=== PATIENT | male | born 1995 | race Two or more races ===

== ENCOUNTER 2019-04-01 02:54 | Emergency (ER) | payer MEDICAID ==
[~2019-04-01] VITALS: Ht 165.1 cm; Wt 90.7 kg
[2019-04-01 02:55] VITALS: BP 156/98
--- NOTE | 2019-04-01 02:55 | NUR ---
ER Nurse Note: Pt brought in by ambulance c/o forehead lac that occured 0240. Per pt, pt was drinking a 12pack of beer. Pt had an argument with family and ran to kitchen, contemplated SI but accidently tripped and fell. Pt has a lac on forehead from LT to RT forhead with metal can. Pt has hx of SI and was in [facility] in the past d/t personal events. Pt denies SI currently, a&ox4, VSS, stable. [employer] at pt side; No sitter currently but primary nurse in close proximity to pt. Will continue to monitor.
--- NOTE | 2019-04-01 03:10 | NUR ---
Nursing chemical processing supervisor notified of the need for a sitter.
--- NOTE | 2019-04-01 03:23 | Emergency Room Report ---
History of Present Illness General Chief Complaint: Laceration Source: Patient (Teo Perea MD) Present Illness HPI 23-year-old male history of suicidal attempt in the past presents with suicidal ideations, patient drank a 12 pack, he states he was going to cut himself, he is suicidal intent is aggravated by fight with his family alleviated by unknown , severity was severe, lasting the entire day, symptoms started 1 day ago, no nausea no vomiting no chest pain or shortness of breath patient has no systemic complaints at this time his plan was to cut himself with aluminum, he fell forward earlier today, landing on the piece of aluminum that cut his forehead, he had positive LOC he was placed on a 5150 for suicidal intent (Teo Perea MD) Allergies: Coded Allergies: No Known Allergies (Unverified , 04/01/19) Patient History Past Medical History: see triage record Social History: Reports: smoking, alcohol use, drug use Reviewed Nursing Documentation: PMH: Agreed; PSxH: Agreed (Teo Perea MD) Nursing Documentation-PMH Past Medical History: No History, Except For (Teo Perea MD) Review of Systems All Other Systems: negative except mentioned in HPI (Teo Perea MD) Physical Exam Vital Signs Date Time Temp Pulse Resp B/P (MAP) Pulse Ox O2 Delivery O2 Flow Rate FiO2 04/01/19 02:52 98.4 128 17 156/98 (117) 98 Room Air Sp02 EP Interpretation: reviewed, normal General Appearance: well appearing, no apparent distress, alert Head: normocephalic, other - Abrasion forehead no open laceration Eyes: bilateral eye PERRL, bilateral eye EOMI ENT: uvula midline, moist mucus membranes Neck: supple, thyroid normal, supple/symm/no masses Respiratory: lungs clear, no respiratory distress, no retraction, no accessory muscle use Cardiovascular #1: normal peripheral pulses, no edema, no gallop, no murmur, tachycardia Gastrointestinal: non tender, soft, no guarding, no rebound Musculoskeletal: normal inspection Neurologic: alert, oriented x3 Psychiatric: mood/affect normal Skin: no rash, warm/dry (Teo Perea MD) Medical Decision Making Diagnostic Impression: Primary Impression: Closed head injury Qualified Codes: S09.90XA - Unspecified injury of head, initial encounter Additional Impression: Suicidal ideations ER Course 23-year-old male presents with acute suicidal ideations. Patient is on a 5150, patient is medically cleared for transfer to a psychiatric facility. Patient with a plan, wants to cut himself with aluminum Laboratory Tests Test 04/01/19 03:23 White Blood Count 9.1 K/UL (4.8-10.8) Red Blood Count 5.05 M/UL (4.70-6.10) Hemoglobin 15.7 G/DL (14.2-18.0) Hematocrit 44.7 % (42.0-52.0) Mean Corpuscular Volume 88 FL (80-99) Mean Corpuscular Hemoglobin 31.2 PG (27.0-31.0) H Mean Corpuscular Hemoglobin Concent 35.2 G/DL (32.0-36.0) Red Cell Distribution Width 10.4 % (11.6-14.8) L Platelet Count 308 K/UL (150-450) Mean Platelet Volume 6.4 FL (6.5-10.1) L Neutrophils (%) (Auto) 63.2 % (45.0-75.0) Lymphocytes (%) (Auto) 19.5 % (20.0-45.0) L Monocytes (%) (Auto) 7.4 % (1.0-10.0) Eosinophils (%) (Auto) 9.0 % (0.0-3.0) H Basophils (%) (Auto) 1.0 % (0.0-2.0) Sodium Level 140 MMOL/L (136-145) Potassium Level 3.0 MMOL/L (3.5-5.1) L Chloride Level 102 MMOL/L (98-107) Carbon Dioxide Level 22 MMOL/L (21-32) Anion Gap 16 mmol/L (5-15) H Blood Urea Nitrogen 8 mg/dL (7-18) Creatinine 0.8 MG/DL (0.55-1.30) Estimate Glomerular Filtration Rate > 60 mL/min (>60) Glucose Level 123 MG/DL (74-106) H Calcium Level 9.3 MG/DL (8.5-10.1) Total Bilirubin 0.3 MG/DL (0.2-1.0) Aspartate Amino Transferase (AST) 100 U/L (15-37) H Alanine Aminotransferase (ALT) 137 U/L (12-78) H Alkaline Phosphatase 112 U/L (46-116) Total Protein 9.3 G/DL (6.4-8.2) H Albumin 4.5 G/DL (3.4-5.0) Globulin 4.8 g/dL Albumin/Globulin Ratio 0.9 (1.0-2.7) L Salicylates Level 1.8 ug/mL (2.8-20) L Urine Opiates Screen Negative (NEGATIVE) Acetaminophen Level < 2 MCG/ML (10-30) L Urine Barbiturates Screen Negative (NEGATIVE) Phencyclidine (PCP) Screen Negative (NEGATIVE) Urine Amphetamines Screen Negative (NEGATIVE) Urine Benzodiazepines Screen Negative (NEGATIVE) Urine Cocaine Screen Negative (NEGATIVE) Urine Marijuana (THC) Screen Positive (NEGATIVE) H Serum Alcohol 167 mg/dL (Teo Perea MD) ER Course Patient was evaluated by myself this morning. Patient still feeling a little depressed. States that he was mostly drunk. But now he is not drunk anymore. He is medically cleared. However patient is on a 5150. Labs Test 04/01/19 03:23 04/01/19 06:00 White Blood Count 9.1 K/UL (4.8-10.8) Red Blood Count 5.05 M/UL (4.70-6.10) Hemoglobin 15.7 G/DL (14.2-18.0) Hematocrit 44.7 % (42.0-52.0) Mean Corpuscular Volume 88 FL (80-99) Mean Corpuscular Hemoglobin 31.2 PG (27.0-31.0) Mean Corpuscular Hemoglobin Concent 35.2 G/DL (32.0-36.0) Red Cell Distribution Width 10.4 % (11.6-14.8) Platelet Count 308 K/UL (150-450) Mean Platelet Volume 6.4 FL (6.5-10.1) Neutrophils (%) (Auto) 63.2 % (45.0-75.0) Lymphocytes (%) (Auto) 19.5 % (20.0-45.0) Monocytes (%) (Auto) 7.4 % (1.0-10.0) Eosinophils (%) (Auto) 9.0 % (0.0-3.0) Basophils (%) (Auto) 1.0 % (0.0-2.0) Sodium Level 140 MMOL/L (136-145) Potassium Level 3.0 MMOL/L (3.5-5.1) Chloride Level 102 MMOL/L (98-107) Carbon Dioxide Level 22 MMOL/L (21-32) Anion Gap 16 mmol/L (5-15) Blood Urea Nitrogen 8 mg/dL (7-18) Creatinine 0.8 MG/DL (0.55-1.30) Estimat Glomerular Filtration Rate > 60 mL/min (>60) Glucose Level 123 MG/DL (74-106) Calcium Level 9.3 MG/DL (8.5-10.1) Total Bilirubin 0.3 MG/DL (0.2-1.0) Aspartate Amino Transf (AST/SGOT) 100 U/L (15-37) Alanine Aminotransferase (ALT/SGPT) 137 U/L (12-78) Alkaline Phosphatase 112 U/L (46-116) Total Protein 9.3 G/DL (6.4-8.2) Albumin 4.5 G/DL (3.4-5.0) Globulin 4.8 g/dL Albumin/Globulin Ratio 0.9 (1.0-2.7) Salicylates Level 1.8 ug/mL (2.8-20) Urine Opiates Screen Negative (NEGATIVE) Acetaminophen Level < 2 MCG/ML (10-30) Urine Barbiturates Screen Negative (NEGATIVE) Phencyclidine (PCP) Screen Negative (NEGATIVE) Urine Amphetamines Screen Negative (NEGATIVE) Urine Benzodiazepines Screen Negative (NEGATIVE) Urine Cocaine Screen Negative (NEGATIVE) Urine Marijuana (THC) Screen Positive (NEGATIVE) Serum Alcohol 167 mg/dL 96 mg/dL (Tiago Mcintosh MD) CT/MRI/US Diagnostic Results CT/MRI/US Diagnostic Results : Impression Preliminary Findings Only See Final Report For Complete Findings CT HEAD Without Contrast: No ICH, mass effect or edema. No skull fracture. Radiologist: Nicolas Holliday M.D. Study ready at 04:39 and initial results transmitted at 05:03 (Teo Perea MD) Last Vital Signs Date Time Temp Pulse Resp B/P (MAP) Pulse Ox O2 Delivery O2 Flow Rate FiO2 04/01/19 02:52 98.4 128 17 156/98 (117) 98 Room Air (Teo Perea MD) Disposition: XFER SHT-TRM HOSP Condition: Stable Teo Perea MD Apr 01, 2019 03:23 Tiago Mcintosh MD Apr 01, 2019 08:59
[2019-04-01] MEDS ORDERED: D5NS 1,000 ML IV SCH (03:30)
[2019-04-01] MEDS ORDERED: Tetanus/Diptheria/Pertussis IM ONE (03:30)
[2019-04-01 03:37] LABS: HEMATOCRIT 44.7 % (42.0-52.0); HEMOGLOBIN 15.7 G/DL (14.2-18.0); LYMPHOCYTES % (AUTO) 19.5 % (20.0-45.0); MEAN CORPUSCULAR VOLUME 88 FL (80-99); MONOCYTES % (AUTO) 7.4 % (1.0-10.0); NEUTROPHILS % (AUTO) 63.2 % (45.0-75.0); PLATELET COUNT 308 K/UL (150-450); RED BLOOD COUNT 5.05 M/UL (4.70-6.10); RED CELL DISTRIBUTION WIDTH 10.4 % (11.6-14.8); WHITE BLOOD COUNT 9.1 K/UL (4.8-10.8)
[2019-04-01 03:48] LABS: ANION GAP 16 mmol/L (5-15); BLOOD UREA NITROGEN 8 mg/dL (7-18); CALCIUM 9.3 MG/DL (8.5-10.1); CARBON DIOXIDE 22 MMOL/L (21-32); CHLORIDE 102 MMOL/L (98-107); CREATININE 0.8 MG/DL (0.55-1.30); SODIUM 140 MMOL/L (136-145)
[2019-04-01 03:52] LABS: ALANINE AMINOTRANSFERASE 137 U/L (12-78); ALBUMIN 4.5 G/DL (3.4-5.0); ALBUMIN/GLOBULIN RATIO 0.9 (1.0-2.7); ALKALINE PHOSPHATASE 112 U/L (46-116); ASPARTATE AMINO TRANSFERASE 100 U/L (15-37); BILIRUBIN,TOTAL 0.3 MG/DL (0.2-1.0)
--- NOTE | 2019-04-01 03:58 | NUR ---
ER Nurse Note: All orders completed per ERMD orders and awaiting lab and urine results. Radiology contacted for CT head. Belongings placed in locker 3. Pt calm, cooperative. IV estbalished on RT AC infusing NS; tolerating well. All safety measures met; will continue to damian. RN at pt side.
--- NOTE | 2019-04-01 04:11 | NUR ---
ER Nurse Note: Pt sitting in chair, no signs of behavioral discrepancy. Pt currently denies SI. Pt calm, cooperative. Blankets, water provided; meal tray ordered for AM. RN at pt vicinity, will continue to monitor.
--- NOTE | 2019-04-01 05:03 | Diagnostic Imaging Report ---
Indication: Headache Technique: Contiguous 5 mm thick transaxial imaging of the head obtained in a Siemens Sensation [address] scanner. Soft tissue and bone windows generated. Automatic Exposure Control was utilized. Total Dose length Product (DLP): [address] Dose Index Volume (CTDIvol): 62.7 mGy Comparison: none Findings: The size and configuration of the cortical sulci, basal cisterns, and ventricles are within normal limits for age. There is no mass effect, midline shift, or edema identified. There is no evidence of acute hemorrhage or abnormal intra-axial or extra-axial fluid collections. The bones and soft tissues are unremarkable. Minimal mucosal thickening noted within some of the paranasal sinuses. Impression: No mass effect, edema or acute bleed. [facility] has communicated the preliminary results to the Emergency Department. Their findings are largely concordant with this report. The CT scanner at [facility] is accredited by the [employer] and the scans are performed using dose optimization techniques as appropriate to a performed exam including Automatic Exposure control.
[2019-04-01 05:20] VITALS: BP 148/90
--- NOTE | 2019-04-01 05:20 | NUR ---
ER Nurse Note: Pt laying down, asleep, no signs of behavioral discrepancy. Pt currently denies SI. Pt calm, cooperative. Blankets, water provided. Potassium givne; pt toleraled well. RN at pt vicinity, will continue to monitor.
--- NOTE | 2019-04-01 06:26 | NUR ---
ER Nurse Note: Repeat labs drawn and sent to lab. Pt asleep, no signs of distress. Pt on 5150 hold palced by [employer]; RN at pt side. SLIV to RT AC; patent. Pt denies pain, n/v. Lac site clean, dry, intact; no s/s of infection. All safety measures met; will conitnue to damian.
--- NOTE | 2019-04-01 06:47 | NUR ---
ER Nurse Note: Meal tray given to pt and placed at pt side. Pt calm, cooperative. Awaiting orders for placement. All safety measures met; will endorse to oncoming shift for continuity of care.
--- NOTE | 2019-04-01 07:23 | NUR ---
ED Nurse Note:pt. is in the room A/Ox4, ate breakfast, compliant no signs of any distress noted, no SI voiced
[2019-04-01 07:25] VITALS: BP 142/89
--- NOTE | 2019-04-01 07:47 | NUR ---
ED Nurse Note:sitter is at bedside
--- NOTE | 2019-04-01 12:43 | NUR ---
patient has been accepted at [facility] by dr thompson. [facility] called eta [id number].
[2019-04-01 12:44] VITALS: BP 120/80
--- NOTE | 2019-04-01 13:00 | NUR ---
ED Nurse Note:pt. was picked up by BLS transportation for psychiatric hospital transport, personal belongings given to EMT
--- NOTE | 2019-04-01 13:10 | NUR ---
ED Nurse Note: D/C SITTER ORDER AT THE BEDSIDE. PT. TRANSFERRED TO [facility]
[2019-04-01 14:09] VITALS: BP 120/80
== END 2019-04-01 13:00 | disposition short-term general hospital (02) ==
LOC: EDBD 02:54 → EMR 03:30
DX: R45.851 Suicidal ideations (principal); S06.9X9A Unspecified intracranial injury with loss of consciousness of unspecified duration, initial encounter; F17.200 Nicotine dependence, unspecified, uncomplicated; Z23 Encounter for immunization; F19.10 Other psychoactive substance abuse, uncomplicated; W18.30XA Fall on same level, unspecified, initial encounter; Y92.9 Unspecified place or not applicable
CPT/HCPCS: 36415; 70450; 80053; 80307; 85025; 90471; 90715; 96360; 96361; G0480; G0481; Z7502; 99284; J7030; J8499